=== PATIENT | female | born 1980 | race Caucasian/White ===

== ENCOUNTER 2018-04-21 00:15 | Emergency (ER) | payer MEDICAID, OTHER ==
[~2018-04-21] VITALS: Ht 165.1 cm; Wt 100.1 kg
[~2018-04-21 00:15] MED LIST: PREN1COM
[2018-04-21 00:18] VITALS: Ht 165.1 cm; Wt 100.1 kg
[2018-04-21] MEDS ORDERED: ONDANSETRON 4 MG INJ IV STA (01:39)
[2018-04-21] MEDS ORDERED: KETOROLAC 30 MG INJ IV STA (01:39)
[2018-04-21] MEDS ORDERED: FAMOTIDINE 20 MG INJ IV STA (01:39)
[2018-04-21] MEDS ORDERED: SOD CHLORIDE 0.9% 1,000 ML IV STA (01:39)
[2018-04-21] MEDS ORDERED: TRAM50TA2 PO (03:21)
[2018-04-21] MEDS ORDERED: CEPH-443 PO (03:21)
[2018-04-21] MEDS ORDERED: ONDA8TAB14 PO (03:21)
--- NOTE | 2018-04-21 03:25 | ERD ---
ER Documentation Chief Complaint Chief Complaint abd pain +feeling bloated +nausea tonight HPI 37-year-old female presents with right upper quadrant abdominal pain with nausea starting tonight. It did start after eating. She denies any fevers. She may have had some symptoms of urinary frequency as well over the last several days. She denies any lower abdominal pain. She states that she has been diagnosed with gallstones in the past but denies any ER visits for acute pain. ROS All systems reviewed and are negative except as per history of present illness. Medications Home Meds Active Scripts Ondansetron (Ondansetron Odt) 8 Mg Tab.rapdis, 8 MG PO Q6H PRN for NAUSEA AND/OR VOMITING, #6 TAB Prov:JULIET RAMOS MD 04/21/18 Tramadol HCl (Tramadol HCl) 50 Mg Tablet, 50 MG PO Q4 PRN for PAIN, #15 TAB Prov:JULIET RAMOS MD 04/21/18 Cephalexin* (Keflex*) 500 Mg Capsule, 500 MG PO QID for 5 Days, CAP Prov:JULIET RAMOS MD 04/21/18 Reported Medications Prenat Vit Comb.10/Iron/Fa/Dha (Vitafol-Ob+Dha Combo Pack) 1 Udcomb.pkg Combo..pkg 04/28/10 Allergies Allergies: Coded Allergies: No Known Allergies (Verified Allergy, Mild, 11/24/10) PMhx/Soc History of Surgery: Yes (right upper abd pain x 1 day) Anesthesia Reaction: No Hx Neurological Disorder: No Hx Respiratory Disorders: No Hx Cardiac Disorders: No Hx Psychiatric Problems: No Hx Miscellaneous Medical Probl: Yes (gallstones) Hx Alcohol Use: No Hx Substance Use: No Hx Tobacco Use: No Smoking Status: Never smoker FmHx Family History: No diabetes, No coronary disease, No other Physical Exam Vitals Vital Signs Date Temp Pulse Resp B/P (MAP) Pulse Ox O2 O2 Flow FiO2 Time Delivery Rate 04/21/18 98.1 78 20 176/99 95 00:18 (124) Physical Exam Const: No acute distress Head: Atraumatic Eyes: Normal Conjunctiva ENT: Normal External Ears, Nose and Mouth. Neck: Full range of motion. No meningismus. Resp: Clear to auscultation bilaterally Cardio: Regular rate and rhythm, no murmurs Abd: Soft, as of Hopper sign. No tenderness at McBurney's point. No rebound., non distended. Normal bowel sounds Skin: No petechiae or rashes Back: No midline or flank tenderness Ext: No cyanosis, or edema Neur: Awake and alert Psych: Normal Mood and Affect Result Diagram: 04/21/18 0211 04/21/18 0211 Results 24 hrs Laboratory Tests Test 04/21/18 01:51 04/21/18 01:55 04/21/18 02:11 Urine Color YELLOW Urine Clarity CLOUDY Urine pH 5.0 Urine Specific [place] 1.019 Urine Ketones NEGATIVE mg/dL Urine Nitrite NEGATIVE mg/dL Urine Bilirubin NEGATIVE mg/dL Urine Urobilinogen NEGATIVE mg/dL Urine Leukocyte Esterase 2+ Wei/ul Urine Microscopic RBC 7 /HPF Urine Microscopic WBC 25 /HPF Urine Squamous Epithelial Cells FEW /HPF Urine Bacteria FEW /HPF Urine Mucus FEW /HPF Urine Hemoglobin 3+ mg/dL Urine Glucose NEGATIVE mg/dL Urine Total Protein NEGATIVE mg/dl POC Beta HCG, Qualitative NEGATIVE White Blood Count 13.4 10^3/ul Red Blood Count 4.70 10^6/ul Hemoglobin 13.2 g/dl Hematocrit 38.5 % Mean Corpuscular Volume 81.9 fl Mean Corpuscular Hemoglobin 28.1 pg Mean Corpuscular 34.3 g/dl Hemoglobin Concent Red Cell Distribution Width 12.1 % Platelet Count 372 10^3/UL Mean Platelet Volume 9.0 fl Immature Granulocytes % 0.300 % Neutrophils % 76.1 % Lymphocytes % 18.6 % Monocytes % 4.0 % Eosinophils % 0.7 % Basophils % 0.3 % Nucleated Red Blood Cells % 0.0 /100WBC Immature Granulocytes # 0.040 10^3/ul Neutrophils # 10.2 10^3/ul Lymphocytes # 2.5 10^3/ul Monocytes # 0.5 10^3/ul Eosinophils # 0.1 10^3/ul Basophils # 0.0 10^3/ul Nucleated Red Blood Cells # 0.0 10^3/ul Sodium Level 139 mmol/L Potassium Level 4.2 mmol/L Chloride Level 103 mmol/L Carbon Dioxide Level 28 mmol/L Anion Gap 8 Blood Urea Nitrogen 11 mg/dl Creatinine 0.68 mg/dl Est Glomerular Filtrat > 60 mL/min Rate mL/min Glucose Level 163 mg/dl Calcium Level 9.6 mg/dl Total Bilirubin 0.1 mg/dl Direct Bilirubin 0.00 mg/dl Indirect Bilirubin 0.1 mg/dl Aspartate Amino Transf (AST/SGOT) 22 IU/L Alanine 23 IU/L Aminotransferase (ALT/SGPT) Alkaline Phosphatase 111 IU/L Total Protein 7.9 g/dl Albumin 4.2 g/dl Globulin 3.70 g/dl Albumin/Globulin Ratio 1.13 Lipase 63 U/L Current Medications Medications Dose Sig/Jeremias Start Time Status Last (Trade) Ordered Route PRN Stop Time Admin Dose Reason Admin Sodium 1,000 ml @ Q1H STAT 04/21/18 DC 04/21/18 Chloride 1,000 mls/hr IV 01:39 04/21/18 02:18 02:38 Ondansetron 4 mg ONCE STAT 04/21/18 DC 04/21/18 HCl (Zofran IV 01:39 04/21/18 02:18 Inj) 01:40 Famotidine 20 mg ONCE STAT 04/21/18 DC 04/21/18 (Pepcid Iv) IV 01:39 04/21/18 02:18 01:40 Ketorolac 30 mg ONCE STAT 04/21/18 DC 04/21/18 Tromethamine IV 01:39 04/21/18 02:19 (Toradol) 01:40 Ceftriaxone 50 ml @ ONCE ONCE 04/21/18 Sodium 100 mls/hr IVPB 03:30 04/21/18 03:59 Procedures/MDM Right upper quadrant ultrasound shows gallstones without evidence of cholecystitis or choledocholithiasis. CBC shows white blood cell count of 11. CMP and lipase normal. Urine shows leukocyte esterase, white blood cells. Patient was given Rocephin 1 g IV, Toradol 30 mill grams IV, Zofran 4 mg IV as well as Pepcid 20 mg IV. Patient had resolution of pain had benign abdomen on serial exam. Patient presents with right upper quadrant abdominal pain improved with observation and treatment likely due to gallstones. There is no evidence of cholecystitis, obstruction. She has signs of UTI and will treat for this wit h Keflex. Patient was treated with tramadol, Zofran as well and recommendations for primary care follow-up and general surgery evaluation for elective cholecystectomy as well as return precautions for fevers, worsening pain, vomiting, new worsening symptoms. The patient was stable with no new complaints during the ER course. Clinically, there is no current evidence to suggest meningitis, sepsis, acute abdomen, pneumonia, stroke, acute coronary syndrome, pulmonary embolism, aortic dissection or any other emergent condition appearing to require further evaluation or hospitalization. Patient counseled regarding my diagnostic impression and care plan. Prior to discharge all questions answere d. Pt agrees with treatment plan and understands strict return precautions. Pt is instructed to follow up with primary care provider within 24-48 hours. Precautionary instructions provided including instructions to return to the ER if not improving or for any worsening or changing symptoms or concerns. Departure Diagnosis: Primary Impression: Gallstones Additional Impressions: UTI (urinary tract infection) Urinary tract infection type: acute cystitis Hematuria presence: without hematuria Qualified Codes: N30.00 - Acute cystitis without hematuria Abdominal pain Abdominal location: right upper quadrant Qualified Codes: R10.11 - Right upper quadrant pain Condition: Stable Patient Instructions: Understanding Urinary Tract Infections (UTIs), Gallstones Referrals: Carter GALVAN KAMBIZ M.D. LOMIS, THOMAS MD Additional Instructions: Examination shows gallstones without findings of infection or obstruction. Will be treated for findings of urine infection. Recheck for worsening pain, vomitin g, fevers, new worsening symptoms. Recommend avoid fatty foods. May need authorization from primary doctor for surgery visit. JULIET RAMOS MD Apr 21, 2018 03:25
[2018-04-21] MEDS ORDERED: CEFTRIAXONE 1 GM/50 ML (PMX) 50 ML IVPB ONE (03:30)
[2018-04-21 04:47] VITALS: BP 136/63; PULSE 65; RESP 18
== END 2018-04-21 05:11 | disposition home or self-care (01) ==
LOC: FTE 00:15
DX: K80.20 Calculus of gallbladder without cholecystitis without obstruction (principal); N30.00 Acute cystitis without hematuria
CPT/HCPCS: 36415; 76705; 80053; 81001; 81025; 83690; 85025; 96361; 96365; 96375; J0696; J1885; J2405; J7030; Z7502; Z7610